=== PATIENT | male | born 1995 | race Caucasian/White ===

== ENCOUNTER 2016-05-12 14:44 | Emergency (ER) | payer OTHER ==
[~2016-05-12] VITALS: Ht 185.4 cm; Wt 79.4 kg
[2016-05-12] MEDS ORDERED: PROAIR HFA8.5 GM (14:57)
[2016-05-12] MEDS ORDERED: DOXYCYCLINE 10100 MG PO ×2 (16:04→16:08)
[2016-05-12 16:27] VITALS: BP 150/79
== END 2016-05-12 16:27 | disposition home or self-care (01) ==
LOC: ER 14:44
DX: J18.9 Pneumonia, unspecified organism (principal); K02.9 Dental caries, unspecified; J45.909 Unspecified asthma, uncomplicated; E05.00 Thyrotoxicosis with diffuse goiter without thyrotoxic crisis or storm; F12.10 Cannabis abuse, uncomplicated